=== PATIENT | female | born 2000 | race Caucasian/White ===

== ENCOUNTER → 2024-09-21 09:40 | Outpatient (REF) | payer BC, SELFPAY ==
[2024-09-23 17:24] LABS: Brazil Nut <0.10 kU/L (<=0.34); Cashew Nut <0.10 kU/L (<=0.34); Egg White <0.10 kU/L (<=0.34); Egg Yolk <0.10 kU/L (<=0.34); Hazel Nut (Filbert) <0.10 kU/L (<=0.34); Peanut <0.10 kU/L (<=0.34); Pecan Nut <0.10 kU/L (<=0.34); Pine (Pinot) Nut <0.10 kU/L (<=0.34); Pistachio <0.10 kU/L (<=0.34); Walnut/Black Walnut <0.10 kU/L (<=0.34)
== END ==
LOC: REG 09:40
DX: Z91.018 Allergy to other foods (principal)
CPT/HCPCS: 36415; 86003